=== PATIENT | male | born 1995 | race Caucasian/White ===

== ENCOUNTER 2016-11-30 22:37 | Emergency (ER) | payer OTHER ==
[~2016-11-30] VITALS: Ht 175.3 cm; Wt 61.2 kg
[2016-11-30 22:40] VITALS: BP 114/54; PULSE 98; RESP 20; TEMP 97.6; O2SAT 99
[2016-11-30] MEDS ORDERED: LORazepam 2 MG/ML VIAL (FOR ER USE) IM ONE (23:30)
[2016-12-01 00:05] VITALS: BP 119/62; PULSE 84; RESP 17; TEMP 97.9; O2SAT 97
== END 2016-12-01 00:05 | disposition home or self-care (01) ==
LOC: SED 22:37
DX: F10.129 Alcohol abuse with intoxication, unspecified (principal); F41.9 Anxiety disorder, unspecified
CPT/HCPCS: 96372; 99283; J2060